=== PATIENT | female | born 1990 | race African-American/Black ===

== ENCOUNTER 2020-04-07 12:30 | Outpatient (RCR) | payer MEDICAID ==
[~2020-04-07 12:30] MED LIST: FERROUSAL325 MG PO; MOTRIN 200200 MG/TAB PO; MOTRIN 600600 MG/TAB PO; NORCO 325 MG-51 TAB PO; PEPCID AC 10MG10 MG PO; PERCOCET 325 MG1 TA2 PO; PRENATAL MVI; ZOLOFT 50MG50 MG PO
== END 2020-04-20 | disposition home or self-care (01) ==
LOC: WSC
DX: G57.02 Lesion of sciatic nerve, left lower limb (principal)

== ENCOUNTER 2020-11-04 11:19 | Emergency (ER) | payer MEDICAID ==
[~2020-11-04] VITALS: Ht 175.3 cm; Wt 104.5 kg
[2020-11-04 11:54] VITALS: TEMP 98.4
[2020-11-04 13:35] VITALS: BP 130/70; PULSE 80
== END 2020-11-04 13:35 | disposition home or self-care (01) ==
LOC: COL.ER 11:19
DX: S67.190A Crushing injury of right index finger, initial encounter (principal); F17.290 Nicotine dependence, other tobacco product, uncomplicated; W23.0XXA Caught, crushed, jammed, or pinched between moving objects, initial encounter